=== PATIENT | female | born 1945 | race Caucasian/White ===

== ENCOUNTER → 2023-12-19 | Outpatient (CLI) | payer MEDICARE, SELFPAY | END | disposition home or self-care (01) | LOC: LABSPEC 14:21 | PROVIDERS: Referring Provider Ophthalmology; Visit Provider Ophthalmology | DX: H04.302 Unspecified dacryocystitis of left lacrimal passage (principal) | CPT/HCPCS: 87070; 87077; 87205 ==

== ENCOUNTER → 2024-06-17 | Outpatient (CLI) | payer MEDICARE, BC, SELFPAY ==
[2024-06-17] MEDS: Methacholine Chloride 18 ml neb kit INHALATION (06:52)
--- NOTE | 2024-06-17 07:26 | CPS ---
Patient did not receive the last dose of Provocholine 16mg/ml, due to 25% drop in FeV1 with previous dose. 16mg/ml dose was disposed of in the [employer] waste bin.
== END | disposition home or self-care (01) ==
LOC: PSN 06:35
PROVIDERS: PCP Family Medicine
DX: R05.3 Chronic cough (principal)
CPT/HCPCS: 94070; 95070